=== PATIENT | male | born 1975 | race Caucasian/White ===

== ENCOUNTER 2019-06-09 20:30 | Outpatient (CLI) | payer BC, OTHER | END 2019-06-09 20:31 | disposition home or self-care (01) | LOC: SLEEPLAB 20:30 | PROVIDERS: ATTEND Otolaryngology Plastic Surgery within the Head & Neck | DX: G47.33 Obstructive sleep apnea (adult) (pediatric) (principal); G47.10 Hypersomnia, unspecified; G47.00 Insomnia, unspecified; J34.2 Deviated nasal septum | CPT/HCPCS: 95810 ==

== ENCOUNTER 2019-06-10 20:30 | Outpatient (CLI) | payer OTHER | END 2019-06-10 20:31 | disposition home or self-care (01) | LOC: SLEEPLAB 20:30 | PROVIDERS: ATTEND Otolaryngology Plastic Surgery within the Head & Neck | DX: G47.33 Obstructive sleep apnea (adult) (pediatric) (principal) | CPT/HCPCS: 95811 ==